=== PATIENT | female | born 1945 | race Caucasian/White ===

== ENCOUNTER 2017-02-12 11:15 | Emergency (ER) | payer OTHER ==
[~2017-02-12] VITALS: Ht 157.5 cm; Wt 98.9 kg
[~2017-02-12 11:15] MED LIST: AMLO5TAB2 PO; ASPI-482 PO; ATOR40TA PO; Aspirin PO; CARV3.12 PO; CLOP75TA57 PO; DIPH25CA58 PO; LISI-338 PO; METF500T4 PO; OMEP40CA5 PO; TICA90TA PO
[2017-02-12 12:08] LABS: BASO # 0.1 x10^3/uL (0.0-0.2); BASO % 1 % (0-3); EOS % 2 % (0-3); HEMATOCRIT 37.6 % (36.0-47.0); HEMOGLOBIN 12.3 g/dL (12.0-15.5); LYMPH # 2.7 x10^3/uL (1.0-4.8); LYMPH % 17 % (24-48); MEAN CORPUSCULAR HEMOGLOBIN 29 pg (25-35); MEAN CORPUSCULAR HGB CONC 33 g/dL (31-37); MEAN CORPUSCULAR VOLUME 88 fL (79-100); MONO % 6 % (0-9); NEUT % 74 % (31-73); PLATELET COUNT 335 x10^3/uL (140-400); RED BLOOD COUNT 4.29 x10^6/uL (3.50-5.40); RED CELL DISTRIBUTION WIDTH 14.1 % (11.5-14.5); WHITE BLOOD COUNT 16.3 x10^3/uL (4.0-11.0)
[2017-02-12] MEDS ORDERED: IPRATRPIUM/ALBUTEROL 0.5/2.5MG 3 ML NEBU. NEB ONE (12:15)
--- NOTE | 2017-02-12 12:15 | PHYS DOC ---
Past Medical History Past Medical History: Asthma, Hypertension, [place], Pneumonia Past Surgical History: Tonsillectomy, Other Additional Past Surgical Histo: 3 cardiac stents Alcohol Use: Rarely Drug Use: None Adult General Chief Complaint Chief Complaint: SHORTNESS OF BREATH HPI HPI Patient is a 71 year old female with history of hypertension, coronary artery disease presents with persistent dry hacking cough for the past several days. Patient also reports dyspnea with exertion and generalized weakness and fatigue. Denies fever chills, nausea vomiting and sweats. Patient was evaluated by her primary care physician's office and was referred to the ED for further evaluation. Patient is a nonsmoker. She denies history of chronic pulmonary disease. She is accompanied at bedside by family member. Review of Systems Review of Systems Review symptoms as per history of present illness. All other review symptoms are negative.[] All other systems were reviewed and found to be within normal limits, except as documented in this note. Current Medications Current Medications Current Medications Medications (Trade) Dose Ordered Sig/Sameer Start Time Stop Time Status Last Admin Dose Admin Albuterol/ Ipratropium (Duoneb) 3 ml 1X ONCE 02/12/17 12:15 02/12/17 12:16 DC 02/12/17 12:46 3 ML Allergies Allergies Allergies Coded Allergies Type Severity Reaction Last Updated Verified Sulfa (Sulfonamide Antibiotics) Allergy Intermediate 06/20/14 No aspirin Adverse Reaction Intermediate gi bleeding 06/20/14 Yes Physical Exam Physical Exam Constitutional: Well developed, well nourished, no acute distress, non-toxic appearance. [] HENT: Normocephalic, atraumatic, bilateral external ears normal, oropharynx moist, no oral exudates, nose normal. [] Eyes: PERRLA, EOMI, conjunctiva normal, no discharge. [] Neck: Normal range of motion, no tenderness, supple, no stridor. [] Cardiovascular:Heart rate regular rhythm, no murmur [] Lungs & Thorax: Respirations nonlabored, mildly diminished otherwise clear. [] Abdomen: Bowel sounds normal, soft, no tenderness. [] Skin: Warm, dry. [] Back: No tenderness, no CVA tenderness. [] Extremities: No tenderness, no leg pain or swelling. [] Neurologic: Alert and oriented X 3, normal motor function, normal sensory function, no focal deficits noted. [] Psychologic: Affect normal, judgement normal, mood normal. [] Current Patient Data Vital Signs Vital Signs Date Time Temp Pulse Resp B/P (MAP) Pulse Ox O2 Delivery O2 Flow Rate FiO2 02/12/17 13:16 102 21 132/69 (90) 95 Room Air 02/12/17 11:44 98.0 98.0 Lab Values Laboratory Tests Test 02/12/17 11:50 White Blood Count 16.3 x10^3/uL (4.0-11.0) H Red Blood Count 4.29 x10^6/uL (3.50-5.40) Hemoglobin 12.3 g/dL (12.0-15.5) Hematocrit 37.6 % (36.0-47.0) Mean Corpuscular Volume 88 fL (79-100) Mean Corpuscular Hemoglobin 29 pg (25-35) Mean Corpuscular Hemoglobin Concent 33 g/dL (31-37) Red Cell Distribution Width 14.1 % (11.5-14.5) Platelet Count 335 x10^3/uL (140-400) Neutrophils (%) (Auto) 74 % (31-73) H Lymphocytes (%) (Auto) 17 % (24-48) L Monocytes (%) (Auto) 6 % (0-9) Eosinophils (%) (Auto) 2 % (0-3) Basophils (%) (Auto) 1 % (0-3) Neutrophils # (Auto) 12.0 x10^3uL (1.8-7.7) H Lymphocytes # (Auto) 2.7 x10^3/uL (1.0-4.8) Monocytes # (Auto) 1.0 x10^3/uL (0.0-1.1) Eosinophils # (Auto) 0.3 x10^3/uL (0.0-0.7) Basophils # (Auto) 0.1 x10^3/uL (0.0-0.2) Sodium Level 133 mmol/L (136-145) L Potassium Level 4.4 mmol/L (3.5-5.1) Chloride Level 95 mmol/L (98-107) L Carbon Dioxide Level 24 mmol/L (21-32) Anion Gap 14 (6-14) Blood Urea Nitrogen 17 mg/dL (7-20) Creatinine 1.0 mg/dL (0.6-1.0) Estimated GFR (Cockcroft-Gault) 54.3 BUN/Creatinine Ratio 17 (6-20) Glucose Level 246 mg/dL (70-99) H Calcium Level 9.2 mg/dL (8.5-10.1) Total Bilirubin 0.5 mg/dL (0.2-1.0) Aspartate Amino Transferase (AST) 19 U/L (15-37) Alanine Aminotransferase (ALT) 15 U/L (14-59) Alkaline Phosphatase 134 U/L (46-116) H Creatine Kinase 134 U/L (26-192) Troponin I Quantitative < 0.017 ng/mL (0.000-0.055) MD-Eau-U-Type Natriuretic Peptide 164 pg/mL (0-124) H Total Protein 9.1 g/dL (6.4-8.2) H Albumin 3.3 g/dL (3.4-5.0) L Albumin/Globulin Ratio 0.6 (1.0-1.7) L Laboratory Tests 02/12/17 11:50 Laboratory Tests 02/12/17 11:50 EKG EKG [] Radiology/Procedures Radiology/Procedures [Chest x-ray: No acute cardiopulmonary disease per radiology report.] Course & Med Decision Making Course & Med Decision Making Pertinent Labs and Imaging studies reviewed. (See chart for details) [Patient afebrile no respiratory distress. Clinical oncologist versus early pneumonia. Will start on antibiotics with PCP follow-up. Return precautions reviewed. Patient verbalizes understanding agreement discharge instructions prior to departure.] Dragon Disclaimer Dragon Disclaimer This electronic medical record was generated, in whole or in part, using a voice recognition dictation system. Departure Departure Impression: Primary Impression: Bronchitis Disposition: 01 HOME, SELF-CARE Condition: GOOD Referrals: BRITNEY ZAMORA MD (PCP) ENRRIQUE AVILA DO Feb 12, 2017 12:15
[2017-02-12 12:17] LABS: CALCIUM 9.2 mg/dL (8.5-10.1); GFR 54.3; POTASSIUM 4.4 mmol/L (3.5-5.1)
[2017-02-12 12:23] LABS: ALBUMIN 3.3 g/dL (3.4-5.0); ALBUMIN/GLOBULIN RATIO 0.6 (1.0-1.7); TOTAL BILIRUBIN 0.5 mg/dL (0.2-1.0); TOTAL PROTEIN 9.1 g/dL (6.4-8.2)
--- NOTE | 2017-02-12 12:43 | RAD ---
Single view of the Chest 02/12/2017 2:00 PM Indication: Shortness of breath. Cough productive of sputum Comparison: Chest radiograph June 10, 2015 Findings: No pneumothorax or pleural effusion is seen. Heart size is normal. Calcified granuloma in the left midlung is stable. No focal infiltrate is identified. No acute osseous changes are seen. Impression: No evidence of acute cardiopulmonary process
[2017-02-12 13:16] VITALS: BP 132/69
--- NOTE | 2017-02-12 14:17 | EKG ---
[facility] [address] [place] [address] Test Date: 2017-02-12 Test Time: 11:46:11 Pat Name: MERNA CELIS Department: Room: Gender: F [employer] Machine Operator: : [id number] Requested By: ENRRIQUE AVILA Order Number: [id number] Reading MD: Measurements Intervals [place] Rate: 111 P: 47 ME: 202 QRS: 56 QRSD: 110 T: 8 QT: 310 QTc: 424 Interpretive Statements SINUS TACHYCARDIA PROLONGED ME INTERVAL LEFT ATRIAL ABNORMALITY RVH WITH REPOLARIZATION ABNORMALITY ABNORMAL ECG No previous ECG available for comparison
== END 2017-02-12 14:18 | disposition home or self-care (01) ==
LOC: ER 11:15
DX: J40 Bronchitis, not specified as acute or chronic (principal); I10 Essential (primary) hypertension; J45.909 Unspecified asthma, uncomplicated; I25.2 Old myocardial infarction; Z95.5 Presence of coronary angioplasty implant and graft; Z88.2 Allergy status to sulfonamides; Z88.6 Allergy status to analgesic agent
CPT/HCPCS: 36415; 71010; 80053; 82550; 83880; 84484; 85025; 93005; 94640; 99285; J7620

== ENCOUNTER 2017-02-27 09:33 | Emergency (ER) | payer OTHER ==
[2017-02-27 10:25] LABS: BILIRUBIN,URINE NEGATIVE (NEG); CLARITY,URINE CLEAR; COLOR,URINE YELLOW; GLUCOSE,URINE NEGATIVE (NEG); NITRITE,URINE NEGATIVE (NEG); PH,URINE 5.5; PROTEIN,URINE NEGATIVE (NEG-TRACE); UROBILINOGEN,URINE 0.2 mg/dL (0.2 mg/dL)
[2017-02-27 10:40] LABS: SQUAMOUS EPITHELIAL CELL,UR MOD /LPF
[2017-02-27 10:41] LABS: BACTERIA,URINE FEW /HPF (0-FEW); RBC,URINE 0 /HPF (0-2)
[2017-02-27 10:43] LABS: ADD MAN DIFF? NO
[2017-02-27 10:47] LABS: BASO # 0.1 x10^3/uL (0.0-0.2); BASO % 1 % (0-3); EOS # 0.4 x10^3/uL (0.0-0.7); EOS % 5 % (0-3); HEMATOCRIT 37.7 % (36.0-47.0); HEMOGLOBIN 12.3 g/dL (12.0-15.5); LYMPH # 2.3 x10^3/uL (1.0-4.8); LYMPH % 29 % (24-48); MEAN CORPUSCULAR HEMOGLOBIN 29 pg (25-35); MEAN CORPUSCULAR HGB CONC 33 g/dL (31-37); MEAN CORPUSCULAR VOLUME 88 fL (79-100); MONO # 0.4 x10^3/uL (0.0-1.1); MONO % 5 % (0-9); NEUT # 4.8 x10^3uL (1.8-7.7); NEUT % 60 % (31-73); PLATELET COUNT 308 x10^3/uL (140-400); RED CELL DISTRIBUTION WIDTH 14.1 % (11.5-14.5)
[2017-02-27] MEDS: ONDANSETRON PF 4 MG/2 ML VIAL. IV (11:02)
[2017-02-27] MEDS: fentaNYL PF VIAL 100 MCG/2 ML VIAL IV (11:03)
[2017-02-27 11:08] LABS: ANION GAP 12 (6-14); BLOOD UREA NITROGEN 15 mg/dL (7-20); BUN/CREATININE RATIO 17 (6-20); CALCIUM 9.3 mg/dL (8.5-10.1); CARBON DIOXIDE 25 mmol/L (21-32); CHLORIDE 102 mmol/L (98-107); CREATININE 0.9 mg/dL (0.6-1.0); GFR 61.4; GLUCOSE 235 mg/dL (70-99); POTASSIUM 4.5 mmol/L (3.5-5.1); SODIUM 139 mmol/L (136-145)
[2017-02-27 11:13] LABS: ALBUMIN 3.7 g/dL (3.4-5.0); ALBUMIN/GLOBULIN RATIO 0.9 (1.0-1.7); ALK PHOS 100 U/L (46-116); ALT (SGPT) 22 U/L (14-59); AST (SGOT) 17 U/L (15-37); TOTAL BILIRUBIN 0.4 mg/dL (0.2-1.0); TOTAL PROTEIN 7.9 g/dL (6.4-8.2)
== END 2017-02-27 11:55 | disposition home or self-care (01) ==
LOC: ER 09:33
DX: R42 Dizziness and giddiness (principal); R04.0 Epistaxis; R55 Syncope and collapse; I10 Essential (primary) hypertension; J45.909 Unspecified asthma, uncomplicated; E11.9 Type 2 diabetes mellitus without complications; Z95.5 Presence of coronary angioplasty implant and graft; Z79.82 Long term (current) use of aspirin; Z88.2 Allergy status to sulfonamides; Z88.6 Allergy status to analgesic agent
CPT/HCPCS: 36415; 70450; 71045; 80053; 81001; 84443; 85025; 93005; 96374; 96375; 99285-25; J2405; J3010

== ENCOUNTER → 2017-11-21 | Outpatient (CLI) | payer OTHER ==
[2017-02-27 11:38] VITALS: BP 117/56
[~2017-11-21] MED LIST changes: -AMLO5TAB2 PO; +AMLO5TAB7 PO; +METF500T16 PO; -METF500T4 PO
--- NOTE | 2017-11-21 12:15 | CARD ---
MR#: [id number] Date of Study: 11/21/2017 Ordering Physician: ALIVIA ESQUIVEL, Referring Physician: ALIVIA ESQUIVEL, Tech: Francisca Gonzalez APPROVED REPORT EXAM: Two-dimensional and M-mode echocardiogram with Doppler and color Doppler. Other Information Quality : FairHR: 70bpm INDICATION CAD MD 2014 2D DIMENSIONS Left Atrium(2D)3.8 (1.6-4.0cm)IVSd1.1 (0.7-1.1cm) Aortic Root(2D)2.9 (2.0-3.7cm)LVDd4.3 (3.9-5.9cm) LVOT Diameter2.3 (1.8-2.4cm)PWd1.2 (0.7-1.1cm) LVDs2.8 (2.5-4.0cm)FS (%) 34.9 % SV52.3 mlLVEF(%)64.5 (>50%) Aortic Valve AoV Peak Bharat.145.4cm/sAoV VTI36.1cm AO Peak GR.8.5mmHgLVOT Peak Bharat.125.0cm/s LVOT VTI 26.58cmAO Mean GR.5mmHg WILL (VMAX)2.30ke3JBT (VTI)2.97cm2 Mitral Valve MV E Wlbykitq33.6cm/sMV DECEL MRAS750cq MV A Zvyqansu246.5cm/sMV ALT38cw E/A Ratio0.8MVA (PHT)4.43cm2 TDI E/Lateral E'10.6E/Medial E'14.0 Pulmonary Vein S1 Rozbbnki40.7cm/sD2 Uxxexwbj44.0cm/s LEFT VENTRICLE The left ventricle is normal size. There is normal left ventricular wall thickness. The left ventricu lar systolic function is normal. The Ejection Fraction is 55-60%. There is normal LV segmental wall m otion. Transmitral Doppler flow pattern is Grade I-abnormal relaxation pattern. RIGHT VENTRICLE The right ventricle is normal size. There is normal right ventricular wall thickness. The right ventr icular systolic function is normal. ATRIA The left atrium size is normal. The right atrium size is normal. The interatrial septum is intact wit h no evidence for an atrial septal defect or patent foramen ovale as noted on 2-D or Doppler imaging. AORTIC VALVE The aortic valve is calcified but opens well. Doppler and Color Flow revealed no significant aortic r egurgitation. There is no significant aortic valvular stenosis. MITRAL VALVE The mitral valve is normal in structure and function. There is no mitral valve stenosis. Doppler and Color-flow revealed trace mitral regurgitation. TRICUSPID VALVE The tricuspid valve is normal in structure and function. Doppler and Color Flow revealed no tricuspid valve regurgitation noted. There is no tricuspid valve stenosis. PULMONIC VALVE The pulmonic valve is not well visualized. Doppler and Color Flow revealed trace pulmonic valvular re gurgitation. GREAT VESSELS The aortic root is normal in size. The IVC is normal in size and collapses >50% with inspiration. PERICARDIAL EFFUSION There is no evidence of significant pericardial effusion. Critical Notification Critical Value: No <Conclusion> The left ventricular systolic function is normal. The Ejection Fraction is 55-60%. There is normal LV segmental wall motion. Transmitral Doppler flow pattern is Grade I-abnormal relaxation pattern. Doppler and Color-flow revealed trace mitral regurgitation. There is no evidence of significant pericardial effusion. Signed by : Alivia Esquivel, Electronically Approved : 11/21/2017 12:14:45
== END | disposition home or self-care (01) ==
LOC: ECHO 10:55
PROVIDERS: ATTEND Internal Medicine Cardiovascular Disease
DX: I25.10 Atherosclerotic heart disease of native coronary artery without angina pectoris (principal)
CPT/HCPCS: 93306